=== PATIENT | female | born 1995 | race Caucasian/White ===

== ENCOUNTER 2021-10-15 11:09 | Emergency (ER) | payer BC ==
[~2021-10-15] VITALS: Ht 149.9 cm; Wt 55.0 kg
[2021-10-15 11:15] VITALS: BP 112/74
[2021-10-15 12:14] LABS: BASOPHILS % 0.5 % (0.0-2.0); EOSINOPHILS % 1.7 % (0.0-5.0); HEMATOCRIT. 40.3 % (36.0-48.0); HEMOGLOBIN. 13.8 g/dL (12.0-16.0); LYMPHOCYTES % 18.5 % (20.0-50.0); MEAN CORPUSCULAR VOLUME 87.9 fL (81.0-99.0); MONOCYTES % 6.5 % (2.0-8.0); NEUTROPHILS % 72.8 % (40.0-76.0); PLATELET 232 x1000/uL (130-400); RED BLOOD CELL COUNT 4.59 mill/uL (4.2-5.4); RED CELL DISTRIBUTION WIDTH 14.4 % (11.6-14.6)
[2021-10-15 12:22] LABS: CHLORIDE 110 mEq/L (98-107)
[2021-10-15] MEDS ORDERED: MAGNESIUM/ALUMINUM HYDROXIDE/SIMETHICONE 30ML UDC PO STA (12:22)
[2021-10-15] MEDS ORDERED: ONDANSETRON 4MG ODT PO STA (12:22)
[2021-10-15 12:43] LABS: HCG SCREEN NEGATIVE
[2021-10-15 14:34] LABS: CLARITY URINE CLEAR (CLEAR); COLOR URINE YELLOW (YELLOW); KETONES URINE TRACE (NEGATIVE); LEUKOCYTE ESTERASE URINE TRACE (NEGATIVE); NITRITE URINE NEGATIVE (NEGATIVE); OCCULT BLOOD URINE NEGATIVE (NEGATIVE); PROTEIN URINE NEGATIVE (NEGATIVE)
[2021-10-15] MEDS ORDERED: OMEP20TA15 MT (15:05)
== END 2021-10-15 15:23 | disposition home or self-care (01) ==
LOC: ER 11:09
DX: R11.0 Nausea (principal); K29.70 Gastritis, unspecified, without bleeding
CPT/HCPCS: 36415; 80053; 81003; 83690; 84703; 85025; 99283; Q0162